=== PATIENT | female | born 1995 | race Caucasian/White ===

== ENCOUNTER 2022-05-01 13:54 | Outpatient (CLI) | payer MEDICAID, SELFPAY ==
[2022-05-01 22:39] LABS: Hepatitis B Surface Antigen* Negative (Negative)
[2022-05-01 22:54] LABS: HIV 1/2/P24 Combo Screen* Negative (Negative)
[2022-05-01 22:57] LABS: Hepatitis C Virus Antibody* Negative (Negative)
[2022-05-01 23:05] LABS: Hepatitis B Surface Antibody* Negative (Negative)
[2022-05-01 23:34] LABS: Chlamydia DNA Amplified* NOT DETECTED (No Detected); GC DNA Amplified* NOT DETECTED (No Detected)
[2022-05-03 22:56] LABS: Rapid Plasma Reagin (RPR) Non Reactive (Non Reactive)
== END 2022-05-01 13:55 | disposition home or self-care (01) ==
PROVIDERS: Visit Provider Emergency Medicine
DX: Z11.3 Encounter for screening for infections with a predominantly sexual mode of transmission (principal); N89.8 Other specified noninflammatory disorders of vagina; R53.83 Other fatigue
CPT/HCPCS: 86592; 86703; 86706; 86803; 87340; 87491; 87591

== ENCOUNTER 2022-12-16 18:54 | Outpatient (CLI) | payer MEDICAID, SELFPAY | END 2022-12-16 18:55 | disposition home or self-care (01) | PROVIDERS: PCP Emergency Medicine; Visit Provider Emergency Medicine | DX: Z11.3 Encounter for screening for infections with a predominantly sexual mode of transmission (principal) | CPT/HCPCS: 86592; 86703; 86803; 87341; 87491; 87591 ==

== ENCOUNTER 2023-03-16 11:14 | Outpatient (CLI) | payer SELFPAY | END 2023-03-16 11:15 | disposition home or self-care (01) | LOC: AMB 04-21 14:24 | PROVIDERS: PCP Emergency Medicine; Visit Provider Family Medicine | DX: T14.90XA Injury, unspecified, initial encounter (principal); V85.0XXA Driver of special construction vehicle injured in traffic accident, initial encounter; Y92.411 Interstate highway as the place of occurrence of the external cause | CPT/HCPCS: A0998 ==